=== PATIENT | male | born 1970 | race Caucasian/White ===

== ENCOUNTER 2023-01-26 18:21 | Emergency (ER) | payer OTHER, BC ==
[2023-01-26 19:00] VITALS: BP 139/87; PULSE 92; RESP 20; TEMP 99; BMI 37.7
[2023-01-26] MEDS ORDERED: KETOROLAC TROMETHAMINE 60 MG/2 ML VIAL IM ONE (19:37)
[2023-01-26] MEDS ORDERED: KETOROLAC TROMETHAMINE 60 MG/2 ML VIAL ONE (19:39)
== END 2023-01-26 20:24 | disposition home or self-care (01) ==
LOC: FER 18:21
PROC: 3E023GC Introduction of Other Therapeutic Substance into Muscle, Percutaneous Approach (ICD-10-PCS; principal; 2023-01-26)
DX: M25.512 Pain in left shoulder (principal); R20.2 Paresthesia of skin; W01.0XXA Fall on same level from slipping, tripping and stumbling without subsequent striking against object, initial encounter
CPT/HCPCS: 73030-TC-LT-FY; 99284-25